=== PATIENT | male | born 1945 | race Caucasian/White ===

== ENCOUNTER 2017-04-21 23:53 | Emergency (ER) | payer MEDICARE, OTHER ==
[~2017-04-21 23:53] MED LIST: ALIGN4 MG PO; B COMPLETE PO; CLEOTGEL TOP; FERROUS SULF325 M1 PO; FLOMAX4 PO; FOLIC ACID400 MC1 PO; MELA3 PO; MULTIPLE VIT PO; OS500+D PO; PRILO PO; PRIN2.5 PO; SAW PALMETT2 PO; SUCR PO; TOFRA100PM PO; TRAZODONE150 MG PO; ULTRAM50 PO; VITAMIN A8000 UNIT; VITAMIN A8000 UNIT PO; VITAMIN B-121000 MC1 PO; VITAMIN B-625 MG PO; VITC500 PO; VITE PO; X25 PO; ZANTAC 150 PO
== END 2017-04-22 00:35 | disposition home or self-care (01) ==
LOC: ER 23:53
DX: M79.89 Other specified soft tissue disorders (principal); Z87.891 Personal history of nicotine dependence; Z86.73 Personal history of transient ischemic attack (TIA), and cerebral infarction without residual deficits; N18.9 Chronic kidney disease, unspecified; Z85.46 Personal history of malignant neoplasm of prostate; Z95.0 Presence of cardiac pacemaker; Z88.5 Allergy status to narcotic agent; Z79.899 Other long term (current) drug therapy
CPT/HCPCS: 71010; 93005; 93971; 99284